=== PATIENT | male | born 1985 ===

== ENCOUNTER 2021-08-23 16:24 | Emergency (ER) | payer OTHER ==
--- NOTE | 2021-08-23 17:38 | ER ---
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 [facility] Coronavirus screen: Vaccine status: Patient reports receiving the 2nd dose of the covid vaccine. Client denies travel out of the [place] in the last 14 days. Ebola Screen: Patient negative for fever greater than or equal to 101.5 degrees Fahrenheit, and additional compatible Ebola Virus Disease symptoms Patient denies exposure to infectious person. Patient denies travel to an Ebola-affected area in the 21 days before illness onset. Initial Sepsis Screen: Does the patient meet any 2 criteria? No. Patient's initial sepsis screen is negative. Does the patient have a suspected source of infection? No. Patient's initial sepsis screen is negative. Risk Assessment: Do you want to hurt yourself or someone else? Patient reports no desire to harm self or others. Onset of symptoms was July 2021. 16:35 Method Of Arrival: Ambulatory [facility] 16:35 Acuity: NIEVES 4 [facility] Triage Assessment: 16:38 General: Appears in no apparent distress. well groomed, well developed, well nourished, [facility] Behavior is calm, cooperative, appropriate for age. Pain: Complains of pain in left leg. Historical: - Allergies: 16:38 No Known Allergies; [facility] - Home Meds: 16:38 None [Active]; [facility] - PMHx: 16:38 None; [facility] - PSHx: 16:38 None; [facility] - Immunization history:: Adult Immunizations up to date. - Social history:: Smoking status: Patient denies any tobacco usage or history of. Screenin:46 Abuse screen: Denies threats or abuse. Denies injuries from another. Nutritional ic1 screening: No deficits noted. Tuberculosis screening: No symptoms or risk factors identified. Fall Risk None identified. Assessment: 17:30 Reassessment: ultrasound at pt's bedside. ic1 17:50 General: Appears in no apparent distress. comfortable, Behavior is calm, cooperative. ic1 Pain: Complains of pain in right leg and left leg. Vital Signs: 16:35 BP 142 / 100; Pulse 89; Resp 18; Temp 98.4; Pulse Ox 100% ; Weight 77 kg; Height 5 ft. jh5 7 in. (170.18 cm); Pain 2/10; 17:49 BP 140 / 64; Pulse 74; Resp 18; Pulse Ox 97% on R/A; ic1 16:35 Body Mass Index 26.59 (77.00 kg, 170.18 cm) 5 ED Course: 16:26 Patient arrived in ED. as 16:38 Triage completed. [facility] 16:38 Arm band placed on right wrist. [facility] 16:41 Shayna Louis FNP-C is PHCP. kb 16:41 Stefano Lee MD is Attending Physician. kb 16:46 Patient has correct armband on for positive identification. Bed in low position. Side ic1 rails up X2. 16:46 No provider procedures requiring assistance completed. ic1 17:37 US Extremity Venous Unilateral Ltd In Process Unspecified. EDMS Administered Medications: No medications were administered Outcome: 17:37 Discharge ordered by MD. kb 17:50 Discharged to home ambulatory. ic1 17:50 Condition: good 17:50 Discharge instructions given to patient, Instructed on discharge instructions, follow up and referral plans. Demonstrated understanding of instructions, follow-up care. 17:50 Patient left the ED. ic1 Signatures: Dispatcher [employer] EDMS Shayna Louis FNP-C FNP-Ckb Martinez, Amelia as Rees, Jessica RN RN [facility] Keke Figueredo RN RN ic1
--- NOTE | 2021-08-23 17:38 | EDPHYS ---
Physician Documentation [facility] Name: Charles Alfred Age: 36 yrs Sex: Male : 1985 Arrival Date: 08/23/2021 Time: 16:26 Bed 16 Private MD: ED Physician Stefano Lee HPI: 08/23 16:44 This 36 yrs old Male presents to ER via Ambulatory with complaints of Leg Pain. kb 16:44 The patient has not recently seen a physician. kb 16:44 The patient presents with pain, that is acute, tenderness. The complaints affect the kb posterior aspect of left knee. Context: The problem was sustained at work, resulted from an unknown cause, the patient can fully bear weight, the patient is able to ambulate. Modifying factors: The symptoms are alleviated by nothing. the symptoms are aggravated by nothing. Associated signs and symptoms: The patient has no apparent associated signs or symptoms. Treatment prior to arrival includes: no previous treatment. Severity of symptoms: At their worst the symptoms were moderate, in the emergency department the symptoms are unchanged. The patient has not experienced similar symptoms in the past. 16:46 Onset: The symptoms/episode began/occurred 10 day(s) ago. kb Historical: - Allergies: 16:38 No Known Allergies; 5 - Home Meds: 16:38 None [Active]; 5 - PMHx: 16:38 None; 5 - PSHx: 16:38 None; 5 - Immunization history:: Adult Immunizations up to date. - Social history:: Smoking status: Patient denies any tobacco usage or history of. ROS: 16:44 Constitutional: Negative for fever, chills, and weight loss. kb 16:44 MS/extremity: Positive for pain, of the posterior aspect of left knee. 16:44 All other systems are negative. Exam: 16:43 Constitutional: This is a well developed, well nourished patient who is awake, alert, kb and in no acute distress. Head/Face: Normocephalic, atraumatic. ENT: Moist Mucous membranes Respiratory: Respirations even and unlabored. No increased work of breathing. Talking in full sentences Skin: Warm, dry with normal turgor. Normal color. Neuro: Awake and alert, GCS 15, oriented to person, place, time, and situation. Moves all extremities. Normal gait. Psych: Awake, alert, with orientation to person, place and time. Behavior, mood, and affect are within normal limits. 16:43 Musculoskeletal/extremity: Extremities: grossly normal except: noted in the posterior aspect of left knee: pain, tenderness, ROM: intact in all extremities, Circulation is intact in all extremities. Sensation intact. Vital Signs: 16:35 BP 142 / 100; Pulse 89; Resp 18; Temp 98.4; Pulse Ox 100% ; Weight 77 kg; Height 5 ft. jh5 7 in. (170.18 cm); Pain 2/10; 17:49 BP 140 / 64; Pulse 74; Resp 18; Pulse Ox 97% on R/A; ic1 16:35 Body Mass Index 26.59 (77.00 kg, 170.18 cm) jh5 MDM: 16:41 Patient medically screened. kb 16:43 Data reviewed: vital signs, nurses notes. Data interpreted: Pulse oximetry: on room air kb is 100 %. Interpretation: normal. 17:37 Counseling: I had a detailed discussion with the patient and/or guardian regarding: the kb historical points, exam findings, and any diagnostic results supporting the discharge/admit diagnosis, radiology results, the need for outpatient follow up, a family practitioner, to return to the emergency department if symptoms worsen or persist or if there are any questions or concerns that arise at home. 08/23 16:43 Order name: US Extremity Venous Unilateral Ltd kb Administered Medications: No medications were administered Disposition: 18:04 Co-signature as Attending Physician, Stefano Lee MD. rn Disposition Summary: 08/23/21 17:37 Discharge Ordered Location: Home kb Condition: Stable kb Diagnosis - Varicose veins of left lower extremities with pain kb Followup: kb - With: Emergency Department - When: As needed - Reason: Worsening of condition Followup: kb - With: Private Physician - When: 2 - 3 days - Reason: Recheck today's complaints, Continuance of care, Re-evaluation by your physician Discharge Instructions: - Discharge Summary Sheet kb - Varicose Veins kb Forms: - Medication Reconciliation Form kb - Thank You Letter kb - Antibiotic Education kb - Prescription Opioid Use kb Signatures: Dispatcher [employer] EDShayna Sutton, BRAND MGR-C BRAND MGR-Stefano Kamara MD MD rn Rees, Jessica, RN RN 5
[2021-08-23 17:55] VITALS: TEMP 98.4
[2021-08-23 17:56] VITALS: BP 140/64; O2SAT 97
--- NOTE | 2021-08-23 18:06 | RAD REPORT ---
EXAM DESCRIPTION: USExtremity Venous Uni Ltd08/23/2021 5:47 pm CLINICAL HISTORY: left leg pain COMPARISON: None. FINDINGS: Left common femoral, superficial femoral, popliteal and posterior tibial veins are compre ssible and demonstrate augmentation. Doppler demonstrates good flow. Varicose veins left popliteal fossa. The veins are compressible without visualization of thrombus Grayscale, color and spectral analysis performed on all vessels IMPRESSION: No evidence of deep venous thrombosis involving the left lower extremity.
== END 2021-08-23 17:50 | disposition home or self-care (01) ==
LOC: ER 16:24
DX: I83.812 Varicose veins of left lower extremity with pain (principal)
CPT/HCPCS: 93971; 99283